=== PATIENT | female | born 1985 | race American Indian/Alaskan Native ===

== ENCOUNTER 2017-05-15 22:44 | Emergency (ER) | payer SELFPAY ==
[2017-05-15] MEDS ORDERED: TYLENOL ONE (23:13)
[2017-05-15 23:22] VITALS: BP 105/77
[2017-05-15] MEDS ORDERED: TYLENOL PO ONE (23:22)
--- NOTE | 2017-05-18 14:49 | XRay Report ---
LEFT ANKLE, 3 views: History: Pain, swelling. Bone mineralization is normal. No acute osseous abnormality or joint pathology is identified. There is moderate lateral soft tissue swelling. IMPRESSION: Soft tissue swelling. No acute osseous injury appreciated.
== END 2017-05-16 06:38 | disposition left against medical advice (07) ==
LOC: ED 22:44
DX: M79.604 Pain in right leg (principal); Z53.21 Procedure and treatment not carried out due to patient leaving prior to being seen by health care provider